=== PATIENT | male | born 1960 | race Caucasian/White ===

== ENCOUNTER 2016-12-21 23:38 | Emergency (ER) | payer SELFPAY ==
[2016-12-22 02:06] VITALS: BP 119/74
== END 2016-12-22 02:06 | disposition home or self-care (01) ==
LOC: ED 23:38
DX: S76.111A Strain of right quadriceps muscle, fascia and tendon, initial encounter (principal); Z79.899 Other long term (current) drug therapy; X58.XXXA Exposure to other specified factors, initial encounter; Y93.01 Activity, walking, marching and hiking; Y92.89 Other specified places as the place of occurrence of the external cause; Y99.8 Other external cause status
CPT/HCPCS: J2270; Q0092; Q0162